=== PATIENT | female | born 1990 | race Caucasian/White ===

== ENCOUNTER 2020-05-03 02:51 | Emergency (ER) | payer SELFPAY ==
[~2020-05-03] VITALS: Ht 157.5 cm; Wt 70.0 kg
--- NOTE | 2020-05-03 03:15 | NUR ---
CC OF SORE THROAT AND EAR PAIN FOR ONE WEEK. TESTED NEGATIVE FOR STREP, FLU, AND COVID WHICH ALL NEGATIVE IN [facility]LEG. PT 18 WEEKS . A6. HERE VISITING BOYFRIEND WHO IS IN TOWN FOR WORK Addendum: 05/03/20 at 0324 by GUERITA CC OF SORE THROAT AND EAR PAIN FOR ONE WEEK. TESTED NEGATIVE FOR STREP, FLU, AND COVID WHICH ALL NEGATIVE IN OLEG. PT 18 WEEKS . A6. HERE VISITING BOYFRIEND WHO IS IN TOWN FOR WORK
[2020-05-03 03:57] VITALS: BP 118/70
== END 2020-05-03 03:59 | disposition home or self-care (01) ==
LOC: ED 03:21
DX: O26.892 Other specified pregnancy related conditions, second trimester (principal); J02.9 Acute pharyngitis, unspecified; Z3A.18 18 weeks gestation of pregnancy
CPT/HCPCS: 99283